=== PATIENT | female | born 1950 | race Caucasian/White ===

== ENCOUNTER 2017-04-19 19:10 | Inpatient (IN) | payer MEDICARE ==
[~2017-04-19] VITALS: Ht 170.2 cm; Wt 86.6 kg
[2017-04-19] MEDS ORDERED: ASPIRIN 325 MG TABLET ONE (19:57)
[2017-04-19] MEDS ORDERED: METOPROLOL TARTRATE 1 MG/ML 5ML VIAL IV ONE ×2 (19:58→20:37)
[2017-04-19 20:00] LABS: BASOPHILS % (AUTO) 0.9 % (0.0-5.0); EOSINOPHILS % (AUTO) 0.3 % (0.0-8.0); MEAN CORPUSCULAR HEMOGLOBIN 29.4 pg (27.0-33.0); MEAN CORPUSCULAR HGB CONC 33.4 g/dL (32.0-36.0); MONOCYTES % (AUTO) 5.2 % (3.0-13.0); NEUTROPHILS % (AUTO) 76.6 % (40.0-77.0); PLATELET COUNT (AUTO) 246 K/uL (130-400); RED BLOOD CELL COUNT(AUTO) 4.55 MIL/uL (4.00-5.50); WHITE BLOOD COUNT (AUTO) 10.7 K/uL (4.8-10.8)
[2017-04-19 20:15] LABS: CARBON DIOXIDE 27 mmol/L (21-32); CHLORIDE 102 mmol/L (101-111); CREATININE 1.1 mg/dL (0.5-1.5); GLOMERULAR FILTR. RATE CALC 53 mL/min (>60); GLUCOSE,RANDOM 266 mg/dL (70-105); POTASSIUM 3.8 mmol/L (3.5-5.1); SODIUM SERUM 140 mmol/L (136-145); UREA NITROGEN, BLOOD 19 mg/dL (7-18)
[2017-04-19 20:16] LABS: INR 1.7 (0.85-1.15); PARTIAL THROMBOPLASTIN TIME 28.2 SEC (26.3-35.5); PROTHROMBIN TIME 17.7 SEC (9.6-11.6)
[2017-04-19 20:28] LABS: ALANINE AMINOTRANSFERASE 41 U/L (12-78); ALBUMIN 3.3 g/dL (3.5-5.0); ASPARTATE AMINOTRANSFERASE 24 U/L (10-37); BILIRUBIN,TOTAL 0.4 mg/dL (0.2-1.0); CREATINE KINASE MB < 0.5 ng/mL (0.5-3.6); CREATINE KINASE, TOTAL 23 U/L (21-232)
[2017-04-20 05:28] LABS: BASOPHILS % (AUTO) 0.9 % (0.0-5.0); EOSINOPHILS % (AUTO) 1.2 % (0.0-8.0); HEMATOCRIT 39.2 % (36-48); LYMPHOCYTES % (AUTO) 34.8 % (21.0-51.0); MEAN CORPUSCULAR HEMOGLOBIN 29.1 pg (27.0-33.0); MEAN CORPUSCULAR HGB CONC 33.4 g/dL (32.0-36.0); MEAN CORPUSCULAR VOLUME 87.2 fL (79-99); MONOCYTES % (AUTO) 6.7 % (3.0-13.0); NEUTROPHILS % (AUTO) 56.4 % (40.0-77.0); PLATELET COUNT (AUTO) 249 K/uL (130-400); RED BLOOD CELL COUNT(AUTO) 4.49 MIL/uL (4.00-5.50); RED CELL DISTRIBUTION WIDTH 15.4 % (11.0-15.5); WHITE BLOOD COUNT (AUTO) 10.2 K/uL (4.8-10.8)
[2017-04-20 05:32] LABS: CREATININE 0.9 mg/dL (0.5-1.5); POTASSIUM 3.7 mmol/L (3.5-5.1)
[2017-04-20 05:33] LABS: INR 1.74 (0.85-1.15); PROTHROMBIN TIME 18.1 SEC (9.6-11.6)
[2017-04-20 05:36] LABS: ALBUMIN 3.1 g/dL (3.5-5.0); BILIRUBIN,TOTAL 0.6 mg/dL (0.2-1.0); TOTAL PROTEIN, SERUM 6.6 g/dL (6.0-8.3)
[2017-04-20] MEDS ORDERED: SODIUM CHLORIDE 0.9% 100 ML IV ONE (09:53)
[2017-04-20] MEDS ORDERED: DILTIAZEM HCL 125 MG/25 ML VIAL IV ONE (09:54)
[2017-04-20] MEDS ORDERED: PREDNISONE 20 MG TABLET ONE (11:55)
[2017-04-20] MEDS ORDERED: METOPROLOL TARTRATE 50 MG TAB ONE (12:50)
[2017-04-20] MEDS: METOPROLOL TARTRATE 50 MG TAB PO SCH ×2 (13:00→21:09)
[2017-04-20 15:17] VITALS: BP 110/67
[2017-04-20] MEDS ORDERED: WARF2.5T85 PO (15:34)
[2017-04-20] MEDS ORDERED: METH2.5T6 PO (15:34)
[2017-04-20] MEDS ORDERED: METO100T14 PO (15:34)
[2017-04-20] MEDS ORDERED: FOLI1TAB15 PO (15:34)
[2017-04-20] MEDS ORDERED: VITA-328 PO (15:34)
[2017-04-20] MEDS ORDERED: HYDR25TA PO (15:34)
[2017-04-20] MEDS ORDERED: PRED10TA3 PO (15:34)
[2017-04-20] MEDS ORDERED: POTA-9 PO (15:34)
[2017-04-20] MEDS ORDERED: MULT-264 PO (15:34)
[2017-04-20] MEDS ORDERED: WARF-57 PO (15:34)
[2017-04-20] MEDS ORDERED: HYDR-4060 PO (15:34)
[2017-04-20] MEDS ORDERED: ALPR0.255 PO (15:34)
[2017-04-20] MEDS ORDERED: ALPRAZOLAM 0.25 MG TABLET PO PRN (15:45)
[2017-04-20] MEDS ORDERED: HYDROCODONE/ACETAMINOPHEN 5/325 MG TAB PO PRN (15:45)
[2017-04-20] MEDS: PANTOPRAZOLE SODIUM 40 MG TABLET.DR PO SCH (15:56)
[2017-04-20] MEDS: DRONEDARONE HYDROCHLORIDE 400 MG TABLET PO SCH (15:56)
[2017-04-20] MEDS ORDERED: WARFARIN SODIUM 1 MG TAB PO SCH (16:00)
[2017-04-20] MEDS ORDERED: WARFARIN SODIUM 2.5 MG TAB PO SCH (16:00)
[2017-04-20 19:00] VITALS: BP 110/68
[2017-04-20] MEDS ORDERED: ACETAMINOPHEN 325 MG TAB ONE (20:48)
[2017-04-20] MEDS ORDERED: ACETAMINOPHEN 325 MG TAB PO PRN (21:15)
[2017-04-21] VITALS: BP 95/60
[2017-04-21] MEDS: DRONEDARONE HYDROCHLORIDE 400 MG TABLET PO SCH ×2 (01:02→09:50)
[2017-04-21 04:00] VITALS: BP 115/61
[2017-04-21] MEDS ORDERED: MULTIVITAMIN TABLET PO SCH (09:00)
[2017-04-21] MEDS ORDERED: FOLIC ACID 1 MG TABLET PO SCH (09:00)
[2017-04-21] MEDS ORDERED: HYDROCHLOROTHIAZIDE 25 MG TABLET PO SCH (09:00)
[2017-04-21] MEDS ORDERED: PREDNISONE 10 MG TABLET PO SCH (09:00)
[2017-04-21] MEDS ORDERED: VITAMIN B COMPLEX 1 CAPSULE PO SCH (09:00)
[2017-04-21] MEDS ORDERED: POTASSIUM CHLORIDE 10 MEQ/TAB.SA PO SCH (09:00)
[2017-04-21 09:44] VITALS: BP 112/75
[2017-04-21] MEDS: METOPROLOL TARTRATE 50 MG TAB PO SCH (09:47)
[2017-04-21] MEDS: PANTOPRAZOLE SODIUM 40 MG TABLET.DR PO SCH (09:50)
[2017-04-21] MEDS ORDERED: FLEC100T3 PO (11:11)
[2017-04-21 12:00] VITALS: BP 102/63
[2017-04-26] MEDS ORDERED: METHOTREXATE SODIUM 2.5 MG TABLET PO SCH (09:00)
== END 2017-04-21 13:50 | disposition home or self-care (01) | DRG 310 ==
LOC: EDH 19:10 → EDHIP 21:57 → 2AH 04-20 15:04 → 3CH 04-20 18:30
PROVIDERS: ADMIT Internal Medicine; ATTEND Internal Medicine
DX: I48.0 Paroxysmal atrial fibrillation (principal); E66.01 Morbid (severe) obesity due to excess calories; I11.9 Hypertensive heart disease without heart failure; M06.9 Rheumatoid arthritis, unspecified; E03.9 Hypothyroidism, unspecified; R79.1 Abnormal coagulation profile; Z79.01 Long term (current) use of anticoagulants; Z79.899 Other long term (current) drug therapy; Z85.43 Personal history of malignant neoplasm of ovary; Z86.711 Personal history of pulmonary embolism; Z86.718 Personal history of other venous thrombosis and embolism; Z90.710 Acquired absence of both cervix and uterus; Z68.29 Body mass index [BMI] 29.0-29.9, adult; Z88.7 Allergy status to serum and vaccine; Z88.8 Allergy status to other drugs, medicaments and biological substances; Z92.21 Personal history of antineoplastic chemotherapy
CPT/HCPCS: 36415; 80053; 82550; 82553; 84439; 84443; 84484; 85025; 85610; 85730; 93005; J3490; J7512

== ENCOUNTER → 2018-05-14 | Outpatient (CLI) | payer MEDICARE ==
[~2018-05-14] MED LIST: ALPR0.255 PO; FLEC100T3 PO; FOLI1TAB15 PO; HYDR-4060 PO; METH2.5T6 PO; METO100T14 PO; MULT-264 PO; PRED10TA3 PO; VITA-328 PO; WARF-57 PO; WARF2.5T85 PO
== END | disposition home or self-care (01) ==
LOC: RAH 11:04
PROVIDERS: ATTEND Internal Medicine
DX: K80.20 Calculus of gallbladder without cholecystitis without obstruction (principal); I72.8 Aneurysm of other specified arteries; K74.60 Unspecified cirrhosis of liver; M47.815 Spondylosis without myelopathy or radiculopathy, thoracolumbar region; I70.90 Unspecified atherosclerosis
CPT/HCPCS: 74150

== ENCOUNTER 2019-03-06 22:06 | Observation (INO) | payer MEDICARE, BC ==
[~2019-03-06] VITALS: Ht 170.2 cm; Wt 75.1 kg
[2019-03-06] MEDS ORDERED: ASPIRIN 325 MG TABLET ONE (23:07)
[2019-03-06 23:23] LABS: CREATININE 0.9 mg/dL (0.5-1.5)
[2019-03-06 23:26] LABS: INR 1.89 (0.85-1.15); PARTIAL THROMBOPLASTIN TIME 30.1 SEC (26.3-35.5); PROTHROMBIN TIME 19.4 SEC (9.6-11.6)
[2019-03-06 23:28] LABS: BASOPHILS % (AUTO) 0.6 % (0.0-5.0); EOSINOPHILS % (AUTO) 0.7 % (0.0-8.0); HEMATOCRIT 44.6 % (36-48); LYMPHOCYTES % (AUTO) 18.8 % (21.0-51.0); MEAN CORPUSCULAR HGB CONC 34.3 g/dL (32.0-36.0); MEAN CORPUSCULAR VOLUME 93.2 fL (79-99); MONOCYTES % (AUTO) 5.2 % (3.0-13.0); NEUTROPHILS % (AUTO) 74.7 % (40.0-77.0); PLATELET COUNT (AUTO) 272 K/uL (130-400); RED BLOOD CELL COUNT(AUTO) 4.79 MIL/uL (4.00-5.50); RED CELL DISTRIBUTION WIDTH 13.9 % (11.0-15.5); WHITE BLOOD COUNT (AUTO) 10.4 K/uL (4.8-10.8)
[2019-03-06 23:38] LABS: ALBUMIN 3.7 g/dL (3.5-5.0); BILIRUBIN,TOTAL 0.5 mg/dL (0.2-1.0); THYROID STIMULATING HORMONE 3.8 uIU/mL (0.36-3.74); TOTAL PROTEIN, SERUM 7.9 g/dL (6.0-8.3)
[2019-03-07] MEDS ORDERED: NITROGLYCERIN 1GM/1 INCH PACKET TD ONE
[2019-03-07 00:01] LABS: B-TYPE NATRIURETIC PEPTIDE 80 pg/mL (0-100)
[2019-03-07] MEDS ORDERED: ACETAMINOPHEN 325 MG TAB ONE (01:03)
[2019-03-07 04:07] VITALS: BP 160/78
[2019-03-07 06:09] LABS: BASOPHILS % (AUTO) 0.6 % (0.0-5.0); EOSINOPHILS % (AUTO) 1.9 % (0.0-8.0); HEMATOCRIT 41.7 % (36-48); LYMPHOCYTES % (AUTO) 31.4 % (21.0-51.0); MEAN CORPUSCULAR HEMOGLOBIN 31.7 pg (27.0-33.0); MEAN CORPUSCULAR HGB CONC 33.7 g/dL (32.0-36.0); MEAN CORPUSCULAR VOLUME 94.1 fL (79-99); NEUTROPHILS % (AUTO) 61.1 % (40.0-77.0); PLATELET COUNT (AUTO) 259 K/uL (130-400); RED BLOOD CELL COUNT(AUTO) 4.43 MIL/uL (4.00-5.50); RED CELL DISTRIBUTION WIDTH 14.1 % (11.0-15.5); WHITE BLOOD COUNT (AUTO) 10.1 K/uL (4.8-10.8)
[2019-03-07 06:27] LABS: ALANINE AMINOTRANSFERASE 26 U/L (12-78); ALBUMIN 3.1 g/dL (3.5-5.0); ASPARTATE AMINOTRANSFERASE 22 U/L (10-37); BILIRUBIN,TOTAL 0.7 mg/dL (0.2-1.0); CARBON DIOXIDE 31 mmol/L (21-32); CHLORIDE 100 mmol/L (101-111); CREATINE KINASE, TOTAL 23 U/L (21-232); CREATININE 0.9 mg/dL (0.5-1.5); GLOMERULAR FILTR. RATE CALC 66 mL/min (>60); GLUCOSE,RANDOM 101 mg/dL (70-105); MYOGLOBIN 30 ng/mL (10-92); POTASSIUM 3.9 mmol/L (3.5-5.1); SODIUM SERUM 139 mmol/L (136-145); TOTAL PROTEIN, SERUM 6.9 g/dL (6.0-8.3); TROPONIN I < 0.04 ng/mL (0.00-0.06); UREA NITROGEN, BLOOD 13 mg/dL (7-18)
[2019-03-07 08:00] VITALS: BP 126/70
[2019-03-07] MEDS ORDERED: REGADENOSON 0.4 MG/5 ML PF SYG IVP SCH (09:45)
[2019-03-07 11:52] VITALS: BP 138/71
[2019-03-07 14:30] LABS: CREATINE KINASE, TOTAL 25 U/L (21-232); MYOGLOBIN 22 ng/mL (10-92); TROPONIN I < 0.04 ng/mL (0.00-0.06)
[2019-03-07] MEDS ORDERED: LORAZEPAM 2 MG/ML 1 ML VIAL ONE (15:39)
[2019-03-07] MEDS ORDERED: LORAZEPAM 2 MG/ML 1 ML VIAL IVP PRN (15:45)
[2019-03-07] MEDS ORDERED: HYDROCODONE/ACETAMINOPHEN 5/325 MG TAB PO PRN (16:00)
[2019-03-07 16:20] VITALS: BP 142/78
[2019-03-07] MEDS ORDERED: CHOL200016 PO (18:48)
[2019-03-07] MEDS ORDERED: MAGN400T53 PO (18:48)
[2019-03-07] MEDS ORDERED: LEVA1.2542 IH (18:48)
[2019-03-07] MEDS ORDERED: OMEP20TA25 PO (18:48)
[2019-03-07] MEDS ORDERED: CHLO25TA3 PO (18:48)
[2019-03-07] MEDS ORDERED: ASCO500T9 PO (18:49)
[2019-03-07] MEDS ORDERED: METO-409 PO (18:55)
[2019-03-07] MEDS ORDERED: POTA-79 PO (18:55)
[2019-03-07 20:16] VITALS: BP 132/74
--- NOTE | 2019-03-07 20:30 | NUR ---
PATIENT 'S STATES THAT PATIENT ALREADY TOOK HER OWN HOME MEDICATIONS FOR NIGHT TIME PATIENT'S ADMISTERED TO THEM, AND THAT HE HAD MADE CHARGE NURSE JOHNNIE AWARE OF THEM VERIFIED , CHARGE NURSE CONFIRMED STATEMENT
[2019-03-07] MEDS ORDERED: METOPROLOL TARTRATE 50 MG TAB PO SCH (21:00)
[2019-03-07] MEDS: FLECAINIDE ACETATE 100 MG TABLET PO SCH (21:00)
[2019-03-07] MEDS: METOPROLOL TARTRATE 50 MG TAB PO SCH (21:00)
[2019-03-08 00:20] VITALS: BP 127/73
[2019-03-08] MEDS ORDERED: ACETAMINOPHEN 325 MG TAB ONE (00:51)
[2019-03-08] MEDS ORDERED: ACETAMINOPHEN 325 MG TAB PO PRN (01:00)
[2019-03-08 04:20] VITALS: BP 127/74
--- NOTE | 2019-03-08 05:06 | NUR ---
PT REFUSED SHOWERED, OFFERED SEVERAL TIMES AND MADE AWARE WE WERE HERE TO ASSIST WITH SHOWERING BUT SHE STILL REFUSED, STATED WANTS TO WAIT FOR HER
[2019-03-08] MEDS ORDERED: ALBUTEROL SULFATE 0.083% 2.5 MG/3 ML INH IH PRN (06:15)
[2019-03-08] MEDS ORDERED: ALPRAZOLAM 0.25 MG TABLET PO PRN (06:15)
[2019-03-08 07:30] VITALS: BP 127/75
[2019-03-08] MEDS: METOPROLOL TARTRATE 50 MG TAB PO SCH (08:19)
[2019-03-08] MEDS: FLECAINIDE ACETATE 100 MG TABLET PO SCH (08:19)
[2019-03-08] MEDS ORDERED: ASCORBIC ACID 500 MG TAB PO SCH (09:00)
[2019-03-08] MEDS ORDERED: HYDROCHLOROTHIAZIDE 25 MG TABLET PO SCH (09:00)
[2019-03-08] MEDS ORDERED: VITAMIN B COMPLEX 1 CAPSULE PO SCH (09:00)
[2019-03-08] MEDS ORDERED: MAGNESIUM OXIDE 400 MG TABLET PO SCH (09:00)
[2019-03-08] MEDS ORDERED: PANTOPRAZOLE SODIUM 40 MG TABLET.DR PO SCH (09:00)
[2019-03-08] MEDS ORDERED: PREDNISONE 10 MG TABLET PO SCH (09:00)
[2019-03-08] MEDS ORDERED: FOLIC ACID 1 MG TABLET PO SCH (09:00)
[2019-03-08] MEDS ORDERED: MULTIVITAMIN TABLET PO SCH (09:00)
[2019-03-08] MEDS ORDERED: CHOLECALCIFEROL 1000 UNIT PO SCH (09:00)
[2019-03-08] MEDS ORDERED: POTASSIUM CHLORIDE PO SCH (09:00)
[2019-03-08 11:00] VITALS: BP 138/77
[2019-03-08 16:00] VITALS: BP 123/76
[2019-03-08] MEDS ORDERED: WARFARIN SODIUM 5 MG TAB PO SCH ×2 (16:00→17:30)
[2019-03-09] MEDS ORDERED: WARFARIN SODIUM 2.5 MG TAB PO SCH (16:00)
[2019-03-14] MEDS ORDERED: METHOTREXATE SODIUM 2.5 MG TABLET PO SCH (09:00)
== END 2019-03-08 17:34 | disposition home or self-care (01) ==
LOC: EDH 22:06 → EDHIP 03-07 00:46 → 3DH 03-07 02:09
PROVIDERS: ADMIT Internal Medicine; ATTEND Internal Medicine
DX: R07.89 Other chest pain (principal); I10 Essential (primary) hypertension; R55 Syncope and collapse; M19.90 Unspecified osteoarthritis, unspecified site; M06.9 Rheumatoid arthritis, unspecified; I48.91 Unspecified atrial fibrillation; Z86.718 Personal history of other venous thrombosis and embolism; Z79.899 Other long term (current) drug therapy
CPT/HCPCS: 36415 ×2; 71045; 78452; 80053 ×2; 82550 ×3; 83690; 83874 ×2; 83880; 84443; 84484 ×3; 85025 ×2; 85610; 85730; 93005 ×2; 93017; 94664; 96374; 99284; A9500 ×2; G0378 ×38; J2060; J2785; J7512

== ENCOUNTER → 2020-01-06 | Outpatient (CLI) | payer MEDICARE ==
[~2020-01-06] MED LIST changes: +ASCO500T20 PO; +CHLO25TA3 PO; +CHOL200016 PO; +LEVA1.2542 IH; +MAGN400T53 PO; +METO-409 PO; -METO100T14 PO; +OMEP20TA25 PO; +POTA-79 PO
== END | disposition home or self-care (01) ==
LOC: RAH 13:55
PROVIDERS: ATTEND Internal Medicine Cardiovascular Disease
DX: K80.20 Calculus of gallbladder without cholecystitis without obstruction (principal); R06.09 Other forms of dyspnea; R18.8 Other ascites
CPT/HCPCS: 71250

== ENCOUNTER → 2020-02-12 | Outpatient (CLI) | payer MEDICARE | END | disposition home or self-care (01) | LOC: SHCH 12:57 | PROVIDERS: ATTEND Internal Medicine Cardiovascular Disease | DX: R06.00 Dyspnea, unspecified (principal) | CPT/HCPCS: 93306 ==

== ENCOUNTER 2020-07-24 11:49 | Emergency (ER) | payer MEDICARE ==
[2020-07-24 12:21] LABS: BASOPHILS % (AUTO) 0.3 % (0.0-5.0); EOSINOPHILS % (AUTO) 0.7 % (0.0-8.0); HEMATOCRIT 44.6 % (36-48); LYMPHOCYTES % (AUTO) 8.2 % (21.0-51.0); MEAN CORPUSCULAR HEMOGLOBIN 30.2 pg (27.0-33.0); MEAN CORPUSCULAR VOLUME 91.8 fL (79-99); MONOCYTES % (AUTO) 7.8 % (3.0-13.0); NEUTROPHILS % (AUTO) 82.5 % (40.0-77.0); PLATELET COUNT (AUTO) 266 K/uL (130-400); RED BLOOD CELL COUNT(AUTO) 4.86 MIL/uL (4.00-5.50); RED CELL DISTRIBUTION WIDTH 14.3 % (11.0-15.5); WHITE BLOOD COUNT (AUTO) 17.4 K/uL (4.8-10.8)
[2020-07-24 12:41] LABS: CREATININE 1.1 mg/dL (0.5-1.5)
[2020-07-24 12:46] LABS: ALBUMIN 3.3 g/dL (3.5-5.0); BILIRUBIN,TOTAL 0.8 mg/dL (0.2-1.0); TOTAL PROTEIN, SERUM 7.8 g/dL (6.0-8.3)
[2020-07-24 12:50] LABS: INR 2.73 (0.85-1.15); PROTHROMBIN TIME 27.2 SEC (9.6-11.6)
[2020-07-24 12:52] LABS: PARTIAL THROMBOPLASTIN TIME 35.5 SEC (26.3-35.5)
[2020-07-24 13:06] LABS: B-TYPE NATRIURETIC PEPTIDE 85 pg/mL (0-100)
[2020-07-24] MEDS ORDERED: SODIUM CHLORIDE 0.9% 1000ML 1,000 ML IV ONE (13:31)
[2020-07-24 13:46] LABS: APPEARANCE,URINE Clear (CLEAR); BILIRUBIN,URINE Negative (NEGATIVE); COLOR,URINE Yellow (YELLOW); GLUCOSE, URINE (UA) 500 mg/dL (NEGATIVE); KETONES,URINE Negative (NEGATIVE); LEUKOCYTE ESTERASE ,URINE Small (NEGATIVE); NITRATE,URINE Negative (NEGATIVE); OCCULT BLOOD,URINE Negative (NEGATIVE); PH,URINE 6.5 (5.0-8.0); PROTEIN,URINE Trace mg/dL (NEGATIVE); UROBILINOGEN,URINE 0.2 mg/dL (0.2-1.0)
[2020-07-24] MEDS ORDERED: CEFTRIAXONE SODIUM 1 GM ONE (14:04)
[2020-07-24 14:16] LABS: BACTERIA,URINE Few /HPF (None Seen); RBC,URINE 0-1 /HPF (0-1)
== END 2020-07-24 15:02 | disposition home or self-care (01) ==
LOC: EDH 11:49
DX: N30.90 Cystitis, unspecified without hematuria (principal); E87.1 Hypo-osmolality and hyponatremia; R06.02 Shortness of breath; Z20.822 Contact with and (suspected) exposure to COVID-19; I48.91 Unspecified atrial fibrillation; M19.90 Unspecified osteoarthritis, unspecified site; Z88.1 Allergy status to other antibiotic agents; Z88.6 Allergy status to analgesic agent; Z88.8 Allergy status to other drugs, medicaments and biological substances
CPT/HCPCS: 36415; 71045; 80053; 81001; 82550; 83880; 84145; 84484; 85025; 85378; 85610; 85730; 87426; 93005; 96361; 96374; 99285; J0696; J7030; U0003